=== PATIENT | male | born 1945 | race Caucasian/White ===

== ENCOUNTER 2017-08-03 12:47 | Inpatient (IN) | payer MEDICARE, BC ==
[~2017-08-03] VITALS: Ht 180.3 cm; Wt 70.8 kg
[2017-08-03] MEDS ORDERED: ASPIRIN 81 MG TAB.CHEW PO ONE (13:00)
[2017-08-03] MEDS ORDERED: AMIO200T2 PO (13:03)
[2017-08-03] MEDS ORDERED: ASPI81TA31 PO (13:03)
[2017-08-03 13:08] LABS: BASOPHILS % (AUTO) 0.4 % (0.0-2.0); EOSINOPHILS # (AUTO) 0.2 K/uL (0.0-0.7); EOSINOPHILS % (AUTO) 2.7 % (0.0-7.0); HEMATOCRIT 46.3 % (36.7-47.1); HEMOGLOBIN 15.4 g/dL (12.5-16.3); LYMPHOCYTES # (AUTO) 1.3 K/uL (20.0-40.0); LYMPHOCYTES % (AUTO) 19.3 % (20.5-51.5); MEAN CORPUSCULAR HEMOGLOBIN 30.9 uug (23.8-33.4); MEAN CORPUSCULAR HGB CONC 33 g/dL (32.5-36.3); MEAN CORPUSCULAR VOLUME 92.6 fL (73.0-96.2); MONOCYTES # (AUTO) 0.6 K/uL (2.0-10.0); NEUTROPHILS # (AUTO) 4.8 K/uL (1.8-8.9); NEUTROPHILS % (AUTO) 69.6 % (38.5-71.5); PLATELET COUNT (AUTO) 195 K/uL (152-348); WHITE BLOOD COUNT (AUTO) 6.9 K/uL (3.6-10.2)
[2017-08-03 13:15] LABS: CARBON DIOXIDE 26 mmol/L (21-32); CHLORIDE 106 mmol/L (98-107); CREATININE 1.3 mg/dL (0.6-1.3); GLUCOSE 100 mg/dL (74-106); POTASSIUM 4.1 mmol/L (3.5-5.1); UREA NITROGEN, BLOOD 18 mg/dL (7-18)
[2017-08-03] MEDS ORDERED: NITROGLYCERIN OINT 1 GM PACKET TP ONE ×2 (13:15→13:25)
--- NOTE | 2017-08-03 13:23 | NUR ---
PT IS IN ROOM #2B. DR ROCKWELL EVALUATED THE PT.
[2017-08-03] MEDS ORDERED: ASPIRIN 81 MG TAB.CHEW ONE (13:25)
[2017-08-03 13:27] LABS: ALANINE AMINOTRANSFERASE 36 U/L (16-63); ALKALINE PHOSPHATASE 83 U/L (50-136); ASPARTATE AMINOTRANSFERASE 25 U/L (15-37); BILIRUBIN,DIRECT 0.2 mg/dL (0.0-0.2); BILIRUBIN,TOTAL 0.7 mg/dL (0.2-1.0); TOTAL PROTEIN, SERUM 6.7 g/dL (6.4-8.2)
[2017-08-03] MEDS ORDERED: ENOXAPARIN SODIUM 80 MG/0.8 ML DISP.SYRIN SQ ONE (14:00)
[2017-08-03] MEDS ORDERED: ENOXAPARIN SODIUM 40 MG/0.4 ML DISP.SYRIN SQ ONE (14:07)
[2017-08-03] MEDS ORDERED: ENOXAPARIN SODIUM 30 MG/0.3 ML DISP.SYRIN ONE (14:07)
[2017-08-03] MEDS ORDERED: MORPHINE SULFATE 4 MG/1 ML DISP.SYRIN IV PRN (14:15)
[2017-08-03] MEDS ORDERED: HYDROCODONE/APAP 5-325MG TABLET PO PRN (14:15)
[2017-08-03] MEDS ORDERED: ACETAMINOPHEN 325 MG TABLET PO PRN (14:15)
[2017-08-03] MEDS ORDERED: Z GUARD REMEDY PASTE 57 GM TUBE TOP PRN (14:15)
[2017-08-03] MEDS: NITROGLYCERIN OINT 1 GM PACKET TP SCH ×2 (14:15→16:55)
[2017-08-03] MEDS ORDERED: MAGNESIUM HYDROXIDE 30 ML LIQUID UDC PO PRN (14:15)
[2017-08-03] MEDS ORDERED: ONDANSETRON 4 MG/2 ML VIAL IV PRN (14:15)
--- NOTE | 2017-08-03 14:21 | NUR ---
REPORT WAS GIVEN TO VAULT CASHIER. PT WAS TRANSFERED TO ROOM #223.
[2017-08-03 14:49] VITALS: BP 128/68
--- NOTE | 2017-08-03 15:45 | NUR ---
pt admitted for chest pain. vitals assessed and stable. pt has bradycardia ranging from 40s to 50s, chest pain 2/10. nitro not given due to time interval between medications given. trop trended .406. notified MD morel. vitals reassed 125/68 hr 50. will await orders.
[2017-08-03 15:50] VITALS: BP 125/68
--- NOTE | 2017-08-03 18:38 | NUR ---
withheld nitro paste for decreased bp. md ponce ordered to have pt npo except meds and give lovenox for late night dose. pt will be picked up at 0715 to be transferred to [facility] for optical lab technician. will endorse to lingo cleaner nurse.
--- NOTE | 2017-08-03 19:15 | NUR ---
RECEIVED PATIENT IN BED, NO SOB NO CHEST PAIN NOTED, AT BEDSIDE. DEMETRIA [id number], CONT TO MONITOR.
[2017-08-03 20:00] VITALS: BP 104/57
[2017-08-03] MEDS ORDERED: ATORVASTATIN 40 MG TABLET PO SCH (21:00)
--- NOTE | 2017-08-03 21:22 | NUR ---
PATIENT REPEAT TROPONIN RESULTS .[address] FERNANDEZ WITH NO FURTHER ORDER.
[2017-08-04] VITALS: BP 97/56
[2017-08-04] MEDS ORDERED: ENOXAPARIN SODIUM 80 MG/0.8 ML DISP.SYRIN SQ SCH
[2017-08-04] MEDS ORDERED: IV NS 1000 ML 1,000 ML IV PRN
[2017-08-04 04:00] VITALS: BP 98/54
[2017-08-04 06:01] LABS: BASOPHILS % (AUTO) 0.5 % (0.0-2.0); EOSINOPHILS # (AUTO) 0.2 K/uL (0.0-0.7); EOSINOPHILS % (AUTO) 2.8 % (0.0-7.0); HEMATOCRIT 41.9 % (36.7-47.1); LYMPHOCYTES # (AUTO) 1.4 K/uL (20.0-40.0); LYMPHOCYTES % (AUTO) 18.5 % (20.5-51.5); MEAN CORPUSCULAR HEMOGLOBIN 30.7 uug (23.8-33.4); MEAN CORPUSCULAR HGB CONC 33 g/dL (32.5-36.3); MEAN CORPUSCULAR VOLUME 92.1 fL (73.0-96.2); MONOCYTES # (AUTO) 0.7 K/uL (2.0-10.0); NEUTROPHILS # (AUTO) 5.2 K/uL (1.8-8.9); NEUTROPHILS % (AUTO) 69.2 % (38.5-71.5); PLATELET COUNT (AUTO) 184 K/uL (152-348); RED BLOOD CELL COUNT(AUTO) 4.55 MIL/uL (4.06-5.63); WHITE BLOOD COUNT (AUTO) 7.6 K/uL (3.6-10.2)
[2017-08-04 06:18] LABS: CARBON DIOXIDE 26 mmol/L (21-32); CHLORIDE 105 mmol/L (98-107); CHOLESTEROL 172 mg/dL (<200); CREATININE 1.2 mg/dL (0.6-1.3); GLUCOSE 95 mg/dL (74-106); HDL CHOLESTEROL 50 mg/dL (40-60); MAGNESIUM 1.8 mg/dL (1.8-2.4); PHOSPHOROUS 3.6 mg/dL (2.5-4.9); POTASSIUM 4.2 mmol/L (3.5-5.1); TRIGLYCERIDES 63 MG/DL (30-150); UREA NITROGEN, BLOOD 17 mg/dL (7-18)
--- NOTE | 2017-08-04 06:35 | NUR ---
PATIENT SLEPT ON AND OFF, NO SOB NO CHEST PAIN, RYTHM SINUS BRYDY, TOOK PATIENT YELLOW COLOR NECKLACE, AND BELONGINGS. PATIENT IV SITE ON LEFT FOREARM INTACT, PATIENT WEARING HIS JACKET. PATIENT ALERT ORIENTED, AT BEDSIDE.
--- NOTE | 2017-08-04 06:55 | NUR ---
PATIENT PICKED UP BY AMBULANCE, GAVE AMBULANCE REPORT, AND TO SEA FROM [facility] NUTRITION INTERN.
--- NOTE | 2017-08-04 07:15 | NUR ---
Received shift report from noc nurse. Pt out for angiogram at [facility].
[2017-08-04] MEDS ORDERED: ASPIRIN 325 MG TABLET PO SCH (09:00)
[2017-08-04] MEDS ORDERED: ASPIRIN 81 MG TAB.CHEW PO SCH ×2 (09:00)
[2017-08-04] MEDS ORDERED: AMIODARONE HCL 200 MG TABLET PO SCH (09:00)
[2017-08-04] MEDS: NITROGLYCERIN OINT 1 GM PACKET TP SCH (09:00)
== END 2017-08-04 17:00 | disposition short-term general hospital (02) | DRG 282 ==
LOC: ER 12:47 → TELE 14:14
PROVIDERS: ADMIT Internal Medicine; ATTEND Internal Medicine
DX: I21.4 Non-ST elevation (NSTEMI) myocardial infarction (principal); I48.0 Paroxysmal atrial fibrillation; E78.5 Hyperlipidemia, unspecified; Z79.82 Long term (current) use of aspirin
CPT/HCPCS: 36415; 70030-TC; 71045; 83735; 84100; 85025; 85730; 93005; A4663; J1650; J7030

== ENCOUNTER 2019-02-13 19:13 | Inpatient (IN) | payer BC, MEDICARE ==
[~2019-02-13] VITALS: Ht 177.8 cm; Wt 64.9 kg
[~2019-02-13 19:13] MED LIST: AMIO200T4 PO; ASPI81TA31 PO
[2019-02-13 19:44] LABS: BASOPHILS % (AUTO) 0.4 % (0.0-2.0); EOSINOPHILS # (AUTO) 0.1 K/uL (0.0-0.7); EOSINOPHILS % (AUTO) 0.9 % (0.0-7.0); HEMATOCRIT 40.8 % (36.7-47.1); HEMOGLOBIN 13.4 g/dL (12.5-16.3); LYMPHOCYTES # (AUTO) 0.8 K/uL (20.0-40.0); LYMPHOCYTES % (AUTO) 8.2 % (20.5-51.5); MEAN CORPUSCULAR HEMOGLOBIN 31.2 uug (23.8-33.4); MEAN CORPUSCULAR HGB CONC 33 g/dL (32.5-36.3); MEAN CORPUSCULAR VOLUME 95.1 fL (73.0-96.2); MONOCYTES # (AUTO) 0.5 K/uL (2.0-10.0); NEUTROPHILS # (AUTO) 8.5 K/uL (1.8-8.9); NEUTROPHILS % (AUTO) 85.5 % (38.5-71.5); PLATELET COUNT (AUTO) 177 K/uL (152-348); RED BLOOD CELL COUNT(AUTO) 4.29 MIL/uL (4.06-5.63)
[2019-02-13] MEDS ORDERED: TDAP DIPH,PERTUSS,TET VAC/PF 0.5 ML DISP.SYRIN IM ONE ×2 (19:45→19:49)
[2019-02-13 19:50] LABS: CREATININE 1.3 mg/dL (0.6-1.3); POTASSIUM 4.3 mmol/L (3.5-5.1)
[2019-02-13] MEDS ORDERED: IV NORMAL SALINE 250 ML IV ONE (20:01)
[2019-02-13] MEDS ORDERED: SWABABLE VALVE TRANSFER SET EA MC ONE (20:01)
[2019-02-13] MEDS ORDERED: IOHEXOL 300MG/ML 100 ML INFUS..BTL ONE (20:01)
[2019-02-13 20:04] LABS: BILIRUBIN,DIRECT 0.1 mg/dL (0.0-0.2); BILIRUBIN,TOTAL 0.4 mg/dL (0.2-1.0); TOTAL PROTEIN, SERUM 6.1 g/dL (6.4-8.2)
--- NOTE | 2019-02-13 20:07 | NUR ---
JOURNEYMAN PIPEFITTER AT BEDSIDE, TRANSPORTED TO CT VIA GURNEY BED AT LOWEST POSITION [id number] UP PT NAD
[2019-02-13] MEDS ORDERED: TICA60TA PO (21:30)
[2019-02-13] MEDS ORDERED: AMIO200T4 PO (21:30)
[2019-02-13] MEDS ORDERED: ATOR40TA PO (21:30)
--- NOTE | 2019-02-13 21:30 | NUR ---
TANIA on the phone with Dr. Nicholson.
--- NOTE | 2019-02-13 21:41 | NUR ---
[facility] cardiology called for doctor to doctor call, TANIA on the phone with Dr. Pinto
--- NOTE | 2019-02-13 22:24 | NUR ---
HAND OFF AND SBAR GIVEN TO JAYLEN RN PT WILL BE ADMITTED TO M/S RM [address] PORTER
--- NOTE | 2019-02-13 22:38 | NUR ---
Patient transported to [facility] in stable condition.
[2019-02-13] MEDS ORDERED: ONDANSETRON 4 MG/2 ML VIAL IV PRN (22:45)
[2019-02-13] MEDS ORDERED: ACETAMINOPHEN 325 MG TABLET PO PRN (22:45)
[2019-02-13] MEDS ORDERED: MELATONIN 3 MG TABLET PO PRN (22:45)
--- NOTE | 2019-02-13 22:50 | NUR ---
Received patient awake in [facility] accompanied by FIXTURE REPAIRER FABRICATOR and . Patient transferred safely to the hospital bed. Noted with IV access on the right antecubital vein, 18g to saline lock, noted patent and intact. Patient has multiple wounds from a fall, cleansed and redressed. Patient and oriented to unit. Patient made comfortable in the bed. Bed in low position, locked, side rails up for safety. Will continue to monitor.
[2019-02-13 22:54] VITALS: BP 116/58
[2019-02-14 04:45] VITALS: BP 91/52
[2019-02-14 06:56] LABS: BASOPHILS % (AUTO) 0.3 % (0.0-2.0); EOSINOPHILS % (AUTO) 0.2 % (0.0-7.0); HEMATOCRIT 31.7 % (36.7-47.1); LYMPHOCYTES % (AUTO) 10.5 % (20.5-51.5); MEAN CORPUSCULAR HEMOGLOBIN 31.7 uug (23.8-33.4); MEAN CORPUSCULAR HGB CONC 33 g/dL (32.5-36.3); MEAN CORPUSCULAR VOLUME 94.8 fL (73.0-96.2); MONOCYTES # (AUTO) 0.7 K/uL (2.0-10.0); MONOCYTES % (AUTO) 7.3 % (0.0-11.0); NEUTROPHILS # (AUTO) 7.5 K/uL (1.8-8.9); NEUTROPHILS % (AUTO) 81.7 % (38.5-71.5); PLATELET COUNT (AUTO) 146 K/uL (152-348); RED BLOOD CELL COUNT(AUTO) 3.35 MIL/uL (4.06-5.63); WHITE BLOOD COUNT (AUTO) 9.2 K/uL (3.6-10.2)
[2019-02-14 07:29] LABS: POTASSIUM 4.4 mmol/L (3.5-5.1)
[2019-02-14 07:37] LABS: HEMOGLOBIN 10.6 g/dL (12.5-16.3)
[2019-02-14 07:48] LABS: CREATININE 1.1 mg/dL (0.6-1.3)
--- NOTE | 2019-02-14 07:53 | NUR ---
Patient slept intermittently throughout the night. Attended all needs. Ensured safety and comfort.
--- NOTE | 2019-02-14 08:34 | NUR ---
Received pt. alert oriented x4 resting in bed with at bedside. IV in R AC 18 guage patent intact hep lock. Pt. denies any SOB or difficulty breathing. Pt. denies any discomfort. Pt. states he has 2/10 pain and does not want to take offered pain medication. Safety measures in place. Call light within reach. Will continue to monitor pt.
[2019-02-14 09:00] VITALS: BP 106/54
--- NOTE | 2019-02-14 10:10 | NUR ---
Pt. blood pressure 106/54 HR 52. Due to low rate called Dr. Pinto cardioligist for parameters on amiodarone. Will hold until calls back.
[2019-02-14 11:06] VITALS: BP 92/50
[2019-02-14] MEDS ORDERED: IV NS 1000 ML 1,000 ML IV ONE (12:00)
[2019-02-14] MEDS: AMIODARONE HCL 200 MG TABLET PO SCH (12:08)
--- NOTE | 2019-02-14 14:02 | NUR ---
Amiodorone given after speaking to company laundry worker. 1 bag of NS ordered for low BP at 75 cc an hour. Changed all of pt.'s dressings cleaned with normal saline and patted dry. Placed dressing over all wounds. Pt. denies any pain or discomfort at this time. Safety measures in place. call light within reach. will continue to monitor.
[2019-02-14 15:06] VITALS: BP 100/54
[2019-02-14 20:08] VITALS: BP 101/53
[2019-02-14] MEDS: ATORVASTATIN 40 MG TABLET PO SCH (21:07)
[2019-02-15 05:09] VITALS: BP 109/57
[2019-02-15 06:31] LABS: BASOPHILS % (AUTO) 0.4 % (0.0-2.0); EOSINOPHILS # (AUTO) 0.2 K/uL (0.0-0.7); EOSINOPHILS % (AUTO) 2.3 % (0.0-7.0); HEMATOCRIT 29.3 % (36.7-47.1); HEMOGLOBIN 9.9 g/dL (12.5-16.3); LYMPHOCYTES # (AUTO) 1.1 K/uL (20.0-40.0); LYMPHOCYTES % (AUTO) 13.4 % (20.5-51.5); MEAN CORPUSCULAR HGB CONC 34 g/dL (32.5-36.3); MONOCYTES # (AUTO) 0.7 K/uL (2.0-10.0); MONOCYTES % (AUTO) 9.1 % (0.0-11.0); NEUTROPHILS % (AUTO) 74.8 % (38.5-71.5); PLATELET COUNT (AUTO) 115 K/uL (152-348); RED BLOOD CELL COUNT(AUTO) 3.08 MIL/uL (4.06-5.63)
--- NOTE | 2019-02-15 06:41 | NUR ---
END OF SHIFT REPORT Addendum: 02/15/19 at 0645 by BRANDEN FITZPATRICK RN Pt rested well in between care; no acute distress; VSS; at bedside; assisted to meet hygiene needs; assisted to BSC with one big BM; dressing to some wounds done per 's request;
[2019-02-15 06:44] LABS: CREATININE 1.1 mg/dL (0.6-1.3); PHOSPHOROUS 2.7 mg/dL (2.5-4.9); POTASSIUM 4.1 mmol/L (3.5-5.1)
[2019-02-15] MEDS: AMIODARONE HCL 200 MG TABLET PO SCH (10:35)
[2019-02-15 11:47] VITALS: BP 101/54
[2019-02-15] MEDS: ASPIRIN 81 MG TAB.CHEW PO SCH (11:48)
--- NOTE | 2019-02-15 12:00 | NUR ---
SW consultation requested due to s/p fall at home. SW met with patient who was in bed in his assigned hospital room. Patient is a 73 year old white male, oriented x 4, receptive to meeting with this SW. Patient's Jessica was also present in the room. Shadowing this SW were [facility] SW's Teodora and Tawny, and patient expressed being ok to having all the SW's present during the interview. Patient stated that he tripped over the water hose at his home. Numerous injuries and bruises observed all over patient's body. Patient was pleasant, cooperative, and able to provide all necessary information to this SW. Patient lives at home with his , in a one story house with just a couple of stairs to enter the house from the front door and a couple of stairs to go out to the back yard. No stairs inside the house. Patient is a practicing physician. Patient is independent with ADL's and IADL's. Patient and patient's did not have any concerns at this time. SW informed them that CM/transportation planner will be assisting them with all necessary discharge arrangements, but that if any questions or concerns arise they can contact the SW too. Both the patient and his expressed understanding and agreement, and thanked SW for her time. No SS interventions needed at this time.
[2019-02-15] MEDS ORDERED: Z GUARD REMEDY PASTE 57 GM TUBE TOP PRN (15:30)
--- NOTE | 2019-02-15 15:34 | NUR ---
WOUND CARE CONSULT: PT PRESENTS WITH ABILITY TO TURN AND REPOSITION IN BED. PT IS CONTINENT AND HAS HEALED AND HEALING ABRASIONS, PRESENT ON ADMISSION. LEFT 3RD TOE IS DISCOLORED. DEFER TO MD FOR TOE. BACK HAS RAISED AREA WITH SOME DISCOLORATION, PRESENT ON ADMISSION. DEFER TO MD FOR BACK. RECOMMENDATIONS MADE FOR SKIN PROTECTION AND WOUND CARE. DISCUSSED WITH NURSING STAFF. WILL SEE PRN. DIANA IN AGREEMENT WITH PLAN OF CARE. Addendum: 02/15/19 at 1536 by MARIANNE JACOBO RN Amended: Links added.
[2019-02-15 16:00] VITALS: BP 99/56
[2019-02-15 20:00] VITALS: BP 118/55
[2019-02-15] MEDS: Z GUARD REMEDY PASTE 57 GM TUBE TOP SCH (20:38)
[2019-02-15] MEDS: ATORVASTATIN 40 MG TABLET PO SCH (20:38)
[2019-02-16 04:00] VITALS: BP 105/52
[2019-02-16 06:27] LABS: BASOPHILS % (AUTO) 0.3 % (0.0-2.0); EOSINOPHILS # (AUTO) 0.2 K/uL (0.0-0.7); EOSINOPHILS % (AUTO) 2.6 % (0.0-7.0); HEMATOCRIT 27.1 % (36.7-47.1); HEMOGLOBIN 9.4 g/dL (12.5-16.3); LYMPHOCYTES # (AUTO) 1.2 K/uL (20.0-40.0); LYMPHOCYTES % (AUTO) 17.2 % (20.5-51.5); MEAN CORPUSCULAR HEMOGLOBIN 33.1 uug (23.8-33.4); MEAN CORPUSCULAR HGB CONC 35 g/dL (32.5-36.3); MEAN CORPUSCULAR VOLUME 95.2 fL (73.0-96.2); MONOCYTES # (AUTO) 0.7 K/uL (2.0-10.0); MONOCYTES % (AUTO) 10.7 % (0.0-11.0); NEUTROPHILS # (AUTO) 4.7 K/uL (1.8-8.9); NEUTROPHILS % (AUTO) 69.2 % (38.5-71.5); PLATELET COUNT (AUTO) 112 K/uL (152-348); RED BLOOD CELL COUNT(AUTO) 2.85 MIL/uL (4.06-5.63); WHITE BLOOD COUNT (AUTO) 6.8 K/uL (3.6-10.2)
[2019-02-16 06:30] LABS: CARBON DIOXIDE 27 mmol/L (21-32); CHLORIDE 110 mmol/L (98-107); GLUCOSE 110 mg/dL (74-106); MAGNESIUM 1.9 mg/dL (1.8-2.4); PHOSPHOROUS 3.2 mg/dL (2.5-4.9); POTASSIUM 4.1 mmol/L (3.5-5.1); UREA NITROGEN, BLOOD 17 mg/dL (7-18)
--- NOTE | 2019-02-16 08:20 | NUR ---
RECEIVED PT RESTING IN ROOM. AT BEDSIDE. NO ACUTE DISTRESS NOTED. NO SOB NOTED. PT DENIES PAIN AT THIS TIME. CALL LIGHT WITHIN REACH. BED LOCKED AND IN LOWEST POSITION. SAFETY MEASURES IMPLEMENTED. WILL CONTINUE TO MONITOR.
[2019-02-16] MEDS: Z GUARD REMEDY PASTE 57 GM TUBE TOP SCH ×2 (09:39→21:23)
[2019-02-16] MEDS: ASPIRIN 81 MG TAB.CHEW PO SCH (09:39)
[2019-02-16] MEDS: AMIODARONE HCL 200 MG TABLET PO SCH (09:43)
[2019-02-16 11:48] VITALS: BP 103/55
[2019-02-16 15:45] VITALS: BP 116/61
--- NOTE | 2019-02-16 18:05 | NUR ---
PT IS RESTING COMFORTABLY IN BED. NO SIGNS OF ACUTE DISTRESS OR SOB NOTED. PT ALERT AND ORIENTED X 3. PT IS MEDICATION COMPLIANT. WOUND CARE TREATMENT PERFORMED. PT DENIES PAIN AT THIS TIME. BED LOCKED AND IN LOWEST POSITION. AT BEDSIDE. WILL GIVE REPORT ACCORDINGLY.
--- NOTE | 2019-02-16 19:20 | NUR ---
Beginning of Shift Received patient with at bedside. Pt is awake, alert and oriented x 4. Able to verbalize needs. No signs of acute distress, denies pain and discomfort. Bedside report given by Javier STILL, all skin breakdown sites viewed together. Appears to be healing progressively. Fall precautions maintained. Bedside care provided. Will continue to monitor.
[2019-02-16 19:45] VITALS: BP 119/59
[2019-02-16] MEDS: ATORVASTATIN 40 MG TABLET PO SCH (21:23)
[2019-02-17 05:10] VITALS: BP 97/49
--- NOTE | 2019-02-17 06:17 | NUR ---
End of Shift Report Patient able to sleep about 8 hours intermittently throughout the night. at bedside and assisting with ADLs. Skin breakdown monitored, and photos taken and placed in chart. Denies any pain or discomfort at rest. Able to rest well, as verbalized. No major changes in condition. Wound care performed as ordered on R arm and shoulder. Will continue to monitor until able to endorse to AM shift.
[2019-02-17 06:30] LABS: BASOPHILS % (AUTO) 0.5 % (0.0-2.0); EOSINOPHILS # (AUTO) 0.3 K/uL (0.0-0.7); EOSINOPHILS % (AUTO) 3.7 % (0.0-7.0); HEMATOCRIT 27.9 % (36.7-47.1); HEMOGLOBIN 9.7 g/dL (12.5-16.3); LYMPHOCYTES % (AUTO) 14.8 % (20.5-51.5); MEAN CORPUSCULAR HEMOGLOBIN 33.4 uug (23.8-33.4); MEAN CORPUSCULAR HGB CONC 35 g/dL (32.5-36.3); MEAN CORPUSCULAR VOLUME 96.2 fL (73.0-96.2); MONOCYTES # (AUTO) 0.7 K/uL (2.0-10.0); MONOCYTES % (AUTO) 9.5 % (0.0-11.0); NEUTROPHILS # (AUTO) 5.1 K/uL (1.8-8.9); NEUTROPHILS % (AUTO) 71.5 % (38.5-71.5); PLATELET COUNT (AUTO) 111 K/uL (152-348); WHITE BLOOD COUNT (AUTO) 7.1 K/uL (3.6-10.2)
[2019-02-17 06:45] LABS: CARBON DIOXIDE 26 mmol/L (21-32); CHLORIDE 110 mmol/L (98-107); POTASSIUM 4.1 mmol/L (3.5-5.1)
[2019-02-17 06:46] LABS: ALANINE AMINOTRANSFERASE 23 U/L (16-63); ALKALINE PHOSPHATASE 60 U/L (50-136); ASPARTATE AMINOTRANSFERASE 23 U/L (15-37); BILIRUBIN,TOTAL 0.6 mg/dL (0.2-1.0); CREATININE 0.9 mg/dL (0.6-1.3); GLUCOSE 105 mg/dL (74-106); PHOSPHOROUS 3.2 mg/dL (2.5-4.9); TOTAL PROTEIN, SERUM 5.2 g/dL (6.4-8.2); UREA NITROGEN, BLOOD 14 mg/dL (7-18)
[2019-02-17] MEDS: ASPIRIN 81 MG TAB.CHEW PO SCH (09:26)
[2019-02-17] MEDS: AMIODARONE HCL 200 MG TABLET PO SCH (09:28)
[2019-02-17] MEDS: Z GUARD REMEDY PASTE 57 GM TUBE TOP SCH ×2 (09:31→21:03)
[2019-02-17 11:09] VITALS: BP 109/54
[2019-02-17 15:07] VITALS: BP 134/51
--- NOTE | 2019-02-17 19:20 | NUR ---
RECEIVED PT ALERT, AWAKE AND ORIENTEDX4.PT SHOWS NO SIGNS OF ACUTE DISTRESS. AT BEDSIDE. SAFETY AND COMFORT PROVIDED. WILL CONTINUE TO MONITOR.
[2019-02-17 20:00] VITALS: BP 131/62
--- NOTE | 2019-02-17 20:00 | NUR ---
PT ASKED ME TO CHECKED HIS RIGHT ARM. CHECKED THAT THERE'S REDNESS ON THE ARM. SUGGESTED TO HAVE COLD COMPRESS. SUGGESTED TO CHANGE THE IV SITE BUT PT REFUSED . PT STABLE AND IN NO ACUTE DISTRESS. WILL CONTINUE TO MONITOR.
[2019-02-17] MEDS: ATORVASTATIN 40 MG TABLET PO SCH (21:03)
[2019-02-17 22:10] VITALS: BP 119/65
--- NOTE | 2019-02-17 22:10 | NUR ---
PT AND REQUESTED TO TAKE HIS VITAL SIGNS . VITAL SIGNS WITHIN NORMAL LIMIT. REQUESTED TO CONSTANTLY CHECK HER VITAL SIGNS LIKE Q2H OR Q4H.
[2019-02-18 06:00] VITALS: BP 125/64
[2019-02-18 06:42] LABS: BASOPHILS % (AUTO) 0.5 % (0.0-2.0); EOSINOPHILS # (AUTO) 0.5 K/uL (0.0-0.7); EOSINOPHILS % (AUTO) 5.5 % (0.0-7.0); HEMATOCRIT 30.1 % (36.7-47.1); HEMOGLOBIN 10.3 g/dL (12.5-16.3); LYMPHOCYTES % (AUTO) 11.2 % (20.5-51.5); MEAN CORPUSCULAR HEMOGLOBIN 32.5 uug (23.8-33.4); MEAN CORPUSCULAR HGB CONC 34 g/dL (32.5-36.3); MEAN CORPUSCULAR VOLUME 95.3 fL (73.0-96.2); MONOCYTES # (AUTO) 0.8 K/uL (2.0-10.0); MONOCYTES % (AUTO) 9.1 % (0.0-11.0); NEUTROPHILS # (AUTO) 6.7 K/uL (1.8-8.9); NEUTROPHILS % (AUTO) 73.7 % (38.5-71.5); PLATELET COUNT (AUTO) 132 K/uL (152-348); RED BLOOD CELL COUNT(AUTO) 3.16 MIL/uL (4.06-5.63); WHITE BLOOD COUNT (AUTO) 9.1 K/uL (3.6-10.2)
[2019-02-18 06:47] LABS: MAGNESIUM 1.9 mg/dL (1.8-2.4); PHOSPHOROUS 3.4 mg/dL (2.5-4.9); POTASSIUM 4.3 mmol/L (3.5-5.1)
--- NOTE | 2019-02-18 06:50 | NUR ---
PT SLEPT INTERMITTENTLY.. PT SHOWS NO SIGNS OF ACUTE DISTRESS. AT BEDSIDE. PT IV INTACT. REFUSED TO LET STAFF TAKE HER VITAL SIGNS at 0400h. took vital signs at 0600h. pt stable. Dressing changed. PRESCRIBED MEDICATION GIVEN AND PT TOLERATED IT WELL. SAFETY AND COMFORT PROVIDED. WILL ENDORSE TO INCOMING NURSE FOR CONTINUITY OF CARE.
--- NOTE | 2019-02-18 07:15 | NUR ---
Received patient in Bed awake and verbally responsive with at bedside. No signs of Distress noted. No SOB. No complain of Pain or discomfort. Will continue to monitor.
[2019-02-18] MEDS: ASPIRIN 81 MG TAB.CHEW PO SCH (08:37)
[2019-02-18] MEDS: Z GUARD REMEDY PASTE 57 GM TUBE TOP SCH (08:41)
[2019-02-18] MEDS: AMIODARONE HCL 200 MG TABLET PO SCH (10:19)
[2019-02-18 11:30] VITALS: BP 121/64
--- NOTE | 2019-02-18 15:30 | NUR ---
Patient awake and verbally responsive. No signs of Respiratory distress noted. No SOB. NO complain of Pain or discomfort. Patient with Discharge Order, Patient and made aware. Discharge Instructions given to patient/Responsible libertarian and printed materials given and verbalized Understanding. All belongings signed and sent home with patient. Removed IV and wrist band. Assisted patient via Wheelchair to private car.
== END 2019-02-18 15:30 | disposition home health service (06) | DRG 604 ==
LOC: ER 19:15 → MEDSURG3 22:28
PROVIDERS: ADMIT Internal Medicine; ATTEND Internal Medicine Nephrology
DX: S20.211A Contusion of right front wall of thorax, initial encounter (principal); N17.0 Acute kidney failure with tubular necrosis; D68.32 Hemorrhagic disorder due to extrinsic circulating anticoagulants; E46 Unspecified protein-calorie malnutrition; S92.532A Displaced fracture of distal phalanx of left lesser toe(s), initial encounter for closed fracture; W01.0XXA Fall on same level from slipping, tripping and stumbling without subsequent striking against object, initial encounter; Y92.019 Unspecified place in single-family (private) house as the place of occurrence of the external cause; T45.515A Adverse effect of anticoagulants, initial encounter; I48.0 Paroxysmal atrial fibrillation; I25.10 Atherosclerotic heart disease of native coronary artery without angina pectoris; Z95.5 Presence of coronary angioplasty implant and graft; T45.525A Adverse effect of antithrombotic drugs, initial encounter; Y92.017 Garden or yard in single-family (private) house as the place of occurrence of the external cause; I45.10 Unspecified right bundle-branch block; I25.2 Old myocardial infarction; I95.1 Orthostatic hypotension; Z79.02 Long term (current) use of antithrombotics/antiplatelets; Z79.82 Long term (current) use of aspirin; Z82.0 Family history of epilepsy and other diseases of the nervous system; D64.9 Anemia, unspecified
CPT/HCPCS: 36415; 70450; 71260; 73660; 83550; 83735; 84100; 85025; 85730; 86850; 86900; 86901; 90715; A4663; G0378; J7030; J7050; Q9967